=== PATIENT | female | born 1990 | race Caucasian/White ===

== ENCOUNTER 2016-12-06 08:54 | Inpatient (IN) | payer OTHER ==
[2016-12-06 12:22] LABS: Benzodiazepine Urine Screen None Detected (None Detect)
[2016-12-06 13:46] LABS: Hematocrit 39 % (35-47); Hemoglobin 12.9 g/dl (12.0-16.0); Mean Corpuscular HGB Conc 34 g/dl (31-36); Mean Corpuscular Hemoglobin 32 pg (27-31); Mean Corpuscular Volume 96 fL (80-97); Mean Platelet Volume 9 um3 (7.4-10.4); Red Blood Count 4.03 10^6/ul (4.0-5.4); Red Cell Distribution Width 14 % (10.5-15); White Blood Count 15.7 10^3/ul (3.5-10.8)
[2016-12-06] MEDS ORDERED: fentaNYL* 50 MCG/ML 2 ML VIAL (100 MCG VIAL) ONE (14:00)
[2016-12-06] MEDS ORDERED: Phenylephrine IV* 40 MCG/ML 10 ML SYRINGE IV PUSH PRN (14:42)
[2016-12-06] MEDS ORDERED: Sodium Citrate/Citric Acid* 15 ML UDC PO PRN (14:42)
[2016-12-06] MEDS ORDERED: Famotidine TAB* 20 MG PO PRN (14:42)
[2016-12-06] MEDS ORDERED: Dibucaine 1% 28.35 GM TUBE PR PRN (16:08)
[2016-12-06] MEDS ORDERED: Glycerin ADULT SUPP PR PRN (16:08)
[2016-12-06] MEDS ORDERED: Measles, Mumps,Rubella VACC* 0.5 ML/VIAL SUBCUT ONE (16:08)
[2016-12-06] MEDS ORDERED: Acetaminophen TAB* 325 MG PO PRN (16:08)
[2016-12-06] MEDS ORDERED: Witch Hazel PAD* JAR TOPICAL PRN (16:08)
[2016-12-06] MEDS ORDERED: Simethicone CHEW TAB* 80 MG PO SCH (17:30)
[2016-12-06] MEDS: Ibuprofen TAB* 600 MG PO PRN (19:28)
[2016-12-06] MEDS: Docusate CAP* 100 MG PO SCH (19:28)
[2016-12-07] MEDS: Ibuprofen TAB* 600 MG PO PRN ×4 (01:28→20:57)
[2016-12-07 07:43] LABS: Hematocrit 34 % (35-47); Hemoglobin 11.5 g/dl (12.0-16.0); Mean Corpuscular HGB Conc 34 g/dl (31-36); Mean Corpuscular Hemoglobin 33 pg (27-31); Mean Corpuscular Volume 98 fL (80-97); Mean Platelet Volume 9 um3 (7.4-10.4); Red Cell Distribution Width 14 % (10.5-15); White Blood Count 14.1 10^3/ul (3.5-10.8)
[2016-12-07] MEDS: Docusate CAP* 100 MG PO SCH ×3 (08:26→20:57)
[2016-12-07] MEDS ORDERED: Ferrous Gluconate TAB* 324 MG TAB PO SCH (09:00)
[2016-12-08 07:46] VITALS: BP 110/62
[2016-12-08] MEDS: Docusate CAP* 100 MG PO SCH ×2 (08:17→14:25)
[2016-12-08] MEDS: Ibuprofen TAB* 600 MG PO PRN ×2 (08:17→14:25)
== END 2016-12-08 17:35 | disposition home or self-care (01) | DRG 560 ==
LOC: MCHOBOUT 08:54 → MCHOB 09:14
PROVIDERS: ADMIT Midwife; ATTEND Midwife
PROC: 10E0XZZ Delivery of Products of Conception, External Approach (ICD-10-PCS; principal; 2016-12-06)
PROC: 10907ZC Drainage of Amniotic Fluid, Therapeutic from Products of Conception, Via Natural or Artificial Opening (ICD-10-PCS; 2016-12-06)
DX: O99.334 Smoking (tobacco) complicating childbirth (principal); F19.21 Other psychoactive substance dependence, in remission; F17.210 Nicotine dependence, cigarettes, uncomplicated; Z3A.39 39 weeks gestation of pregnancy; Z37.0 Single live birth
CPT/HCPCS: 36415; 80307; 85025; 86850; 86900; 86901; A9270-GY; J3010

== ENCOUNTER 2019-09-03 11:52 | Emergency (ER) | payer OTHER ==
[2019-09-03 13:03] VITALS: BP 116/82
--- NOTE | 2019-09-03 13:14 | UC ---
FLU HPI - HPI Summary HPI Summary: 29-year-old female presents with 6 day history of general malaise, fatigue, nasal congestion, sinus pressure, bilateral ear fullness, sore throat, mild shortness of breath, and mild cough. Reports fever of 102 F at the onset of symptoms but no fever since that time. States 2-year-old son became ill at the same time with similar symptoms and was evaluated at his commissioner of relocation services's office today and diagnosed with a viral upper respiratory infection. No recent travel and no known contact with persons isolated for or diagnosed with COVID-19. Denies ear drainage, dysphagia, chest pain, wheezing, abdominal pain, nausea, vomiting, or diarrhea. - History of Current Complaint Chief Complaint: UCRespiratory Stated Complaint: FEVER,HEADACHE,RESP COMPLAINT Time Seen by Provider: 09/03/19 12:38 Hx Obtained From: Patient Hx Last Menstrual Period: depo Pain Intensity: 7 - Allergy/Home Medications Allergies/Adverse Reactions: Allergies Allergy/AdvReac Type Severity Reaction Status Date / Time No Known Allergies Allergy Verified 09/03/19 12:37 Home Medications: Home Medications NK [No Home Medications Reported] 09/03/19 [History Confirmed 09/03/19] PMH/Surg Hx/FS Hx/Imm Hx Previously Healthy: Yes - Denies significant PMH - Surgical History Surgical History: None - Family History Family History: Denies significant FMH - Social History Occupation: Unemployed Lives: Alone Alcohol Use: None Substance Use Type: None Substance Use Comment - Amount & Last Used: hx of Smoking Status (MU): Former Smoker Household Exposure Type: Cigarettes - Immunization History Most Recent Influenza Vaccination: 09/23/16 Most Recent Pneumonia Vaccination: none Review of Systems All Other Systems Reviewed And Are Negative: Yes Constitutional: Positive: Fever, Chills, Fatigue Skin: Negative: Rash Eyes: Negative: Drainage, Eye Redness ENT: Positive: Sore Throat, Ear Ache, Nasal Discharge, Sinus Congestion, Sinus Pain/Tenderness Respiratory: Positive: Shortness Of Breath, Cough Cardiovascular: Negative: Palpitations, Chest Pain Gastrointestinal: Negative: Abdominal Pain, Vomiting, Diarrhea, Nausea Genitourinary: Positive: Negative Musculoskeletal: Positive: Negative Neurological/Mental Status: Positive: Negative Is Patient Immunocompromised?: No Physical Exam - Summary Physical Exam Summary: GENERAL APPEARANCE: Well developed, well nourished, alert and cooperative, and appears to be in no acute distress. EYES: Conjunctiva clear. No drainage. EARS: External auditory canals and tympanic membranes clear, hearing grossly intact. NOSE: Mild nasal congestion. No nasal discharge. THROAT: Pharyngeal cobblestoning. No tonsilar inflammation, swelling, exudate, or lesions. Uvula midline. NECK: Neck supple, non-tender without lymphadenopathy. CARDIAC: Normal S1 and S2. No S3, S4 or murmurs. Rhythm is regular. There is no peripheral edema, cyanosis or pallor. Extremities are warm and well perfused. Capillary refill is less than 2 seconds. Peripheral pulses intact. LUNGS: Clear to auscultation without rales, rhonchi, wheezing or diminished breath sounds. Cough not observed. ABDOMEN: Positive bowel sounds. Soft, nondistended, nontender. No guarding or rebound. No masses or hepatosplenomegally. MUSKULOSKELETAL: ROM intact to all extremities. No joint erythema or tenderness. Normal muscular development. Normal gait. SKIN: Skin normal color, texture and turgor with no lesions or eruptions. Triage Information Reviewed: Yes Vital Signs: Initial Vital Signs Temp 98.7 F 09/03/19 12:37 Pulse 98 09/03/19 12:37 Resp 18 09/03/19 12:37 BP 116/82 09/03/19 12:37 Pulse Ox 97 09/03/19 12:37 Vital Signs Reviewed: Yes Flu Course/Dx - Course Course Of Treatment: 29-year-old female presents with 6 day history of general malaise, fatigue, nasal congestion, sinus pressure, bilateral ear fullness, sore throat, mild shortness of breath, and mild cough. Reports fever of 102 F at the onset of symptoms but no fever since that time. States 2-year-old son became ill at the same time with similar symptoms and was evaluated at his commissioner of relocation services's office today and diagnosed with a viral upper respiratory infection. No recent travel and no known contact with persons isolated for or diagnosed with COVID-19. Denies ear drainage, dysphagia, chest pain, wheezing, abdominal pain, nausea, vomiting, or diarrhea. Afebrile. Vital signs stable. Patient had mild nasal congestion, normal TMs, pharyngeal cobblestoning without tonsillar swelling or exudate, no cervical lymphadenopathy, clear bilateral breath sounds, and otherwise unremarkable exam. Rapid strep test and rapid flu tests were negative. Discussed with the patient that based on her history have a very low suspicion for COVID-19 infection and am recommending symptomatic treatment for a viral upper respiratory infection at this time. She is to return here or follow up with primary care in 3-5 days if symptoms persist. Anticipatory guidance and warning symptoms are reviewed with the patient. Verbalizes understanding and agrees with plan of care. - Differential Dx/Diagnosis Differential Diagnosis/HQI/PQRI: Bronchitis, Influenza, Pneumonia, Upper Respiratory Infection, Other - Sinusitis, COVID-19 Provider Diagnosis: URI, acute Discharge ED - Sign-Out/Discharge Documenting (check all that apply): Patient Departure All imaging exams completed and their final reports reviewed: No Studies - Discharge Plan Condition: Stable Disposition: HOME Patient Education Materials: Upper Respiratory Infection (ED) Forms: COVID-19 Eval & Not Tested Referrals: No Primary Care Phys,NOPCP [Primary Care Provider] - Additional Instructions: Your history and exam are consistent with a viral upper respiratory infection. Viral infections do not respond to antibiotics and are limited to the treatment of symptoms. Viral infections typically run their course in 7-10 days. Drink plenty of fluids to avoid dehydration especially if you are running any fever. Use a saline rinse kit such as Neti Pot or NeilMed at least twice a day to help thin secretions and promote drainage of the sinuses. Use fluticasone (Flonase) nasal spray 2 sprays each nostril once daily. You can also use on over the counter decongestant such as Sudafed to help with congestion. Take over the counter acetaminophen (Tylenol) or ibuprofen (Advil, Motrin) according to directions as needed for pain or fever. Use salt water gargles several times a day if you have a sore throat. You may also use Chloraseptic spray or Cepacol lonzenges according to directions which contain a numbing medication and can provide some temporary relief from your sore throat. Return here or follow up with primary care in 3-5 days if symptoms persist. I have provided you with the contact information for the [facility] physician referral service if you need assistance with establishing with a provider. It is extremely important at this time to be heeding the calls for social distancing. Social distancing is deliberately increasing the physical space between people to avoid spreading illness. Staying at least six feet away from other people lessens your chances of catching COVID-19. Examples of social distancing that allow you to avoid larger crowds or crowded spaces are: * Working from home instead of at the office * Switching to online classes * Visiting loved ones by electronic devices instead of in person * Cancelling or postponing conferences and large meetings Seek immediate medical attention in the emergency room if you have fever greater than 100.5 F despite taking acetaminophen or ibuprofen, have chest pain , difficulty breathing, are unable to swallow, or have any worsening of symptoms. - Billing Disposition and Condition Condition: STABLE Disposition: Home
[2019-09-03 13:16] LABS: Influenza A Molecular Negative (Negative); Influenza B Molecular Negative (Negative)
== END 2019-09-03 14:00 | disposition home or self-care (01) ==
LOC: UCEAST 11:52
DX: J06.9 Acute upper respiratory infection, unspecified (principal); R06.02 Shortness of breath; Z87.891 Personal history of nicotine dependence
CPT/HCPCS: 87651; 99211; G0463

== ENCOUNTER 2024-04-05 09:46 | Observation (INO) ==
[2024-04-05] MEDS: Lactated Ringers 1000 ml BAG 1,000 ML IV ONE (11:14)
[2024-04-05 11:48] LABS: Urine Appearance Clear; Urine Bilirubin Negative (Negative); Urine Blood Negative (Negative); Urine Color Yellow; Urine Glucose Negative (Negative); Urine Ketones Negative (Negative); Urine Nitrite Negative (Negative); Urine Protein Trace (Negative); Urine Specific Gravity 1.039 (1.002-1.030); Urine Urobilinogen Negative (Negative); Urine pH 5.5 (5.0-8.0)
[2024-04-05 11:50] LABS: ABS Monocytes 0.2 10^3/uL (0.0-0.9); ABS Neutrophils 3.8 10^3/uL (1.5-7.6); Hematocrit 38.8 % (35-45); Lymphocyte % 19.1 %; Mean Corpuscular Hemoglobin 30.5 pg (27-33); Mean Corpuscular Hgb Conc 33.4 g/dL (31-36); Mean Corpuscular Volume 91.3 fL (80-97); Mean Platelet Volume 7.8 fL (7.5-11.2); Platelet Count 306 10^3/uL (150-450); Red Blood Count 4.25 10^6/uL (3.63-4.92); Red Cell Distribution Width 14.5 % (12-17)
[2024-04-05 12:30] LABS: Albumin 3.8 g/dL (3.2-5.2); Albumin/Globulin Ratio 1.2 (1-3); C Reactive Protein 63.51 mg/L (<8.01); Calcium 8.8 mg/dL (8.6-10.3); Creatinine, Serum 0.66 mg/dL (0.51-0.95); Globulin 3.3 g/dL (2-4); Potassium 4.1 mmol/L (3.5-5.0); Total Bilirubin 0.4 mg/dL (0.2-1.0); Total Protein 7.1 g/dL (6.4-8.9); eGFR CKD-EPI 117.2 (>60)
[2024-04-05 12:32] LABS: HCG Pregnancy 1.06 mIU/mL
[2024-04-05] MEDS: Iohexol 350 (CONTRAST) 500 ML MDV IV ONE (12:56)
[2024-04-05] MEDS: Piperacillin/Tazobac 3.375 BAG 3.375 GM/100 ML BAG IV ONE (16:52)
[2024-04-05] MEDS: Acetaminophen IV 1 GM/100ML 1,000 MG/100 ML BAG IV ONE (17:36)
[2024-04-05 18:01] LABS: Hepatitis B Surface Antigen Nonreactive (Nonreactive)
[2024-04-05 18:05] LABS: Hepatitis A Ab IgM Negative (Negative)
[2024-04-05 18:06] LABS: Hepatitis B Core IgM Nonreactive (Nonreactive)
[2024-04-05 18:18] LABS: Hepatitis C Antibody Negative (Negative)
[2024-04-05] MEDS ORDERED: metroNIDAZOLE IV 500 MG/100ML 500 MG/100 ML BAG IVPB SCH (21:00)
[2024-04-05] MEDS: cefTRIAXone 1 gm/50 mL D5W 1 GM/50 ML BAG IV SCH (21:17)
[2024-04-05] MEDS: DOXYcycline 100 MG in NS 0.9% 250 ml 250 ML IVPB SCH (21:57)
[2024-04-05] MEDS: Lactated Ringers 1000 ml BAG 1,000 ML IV SCH (21:57)
[2024-04-06] MEDS: Ondansetron 4 mg VIAL 2 MG/ML 2 ml VIAL IV PRN (00:32)
[2024-04-06] MEDS: metroNIDAZOLE IV 500 MG/100ML 500 MG/100 ML BAG IVPB SCH (05:16)
[2024-04-06 06:22] LABS: Hematocrit 36.6 % (35-45); Hemoglobin 12.2 g/dL (11.5-14.3); Mean Corpuscular Hemoglobin 30.5 pg (27-33); Mean Corpuscular Hgb Conc 33.3 g/dL (31-36); Mean Corpuscular Volume 91.4 fL (80-97); Mean Platelet Volume 7.8 fL (7.5-11.2); Platelet Count 277 10^3/uL (150-450); Red Cell Distribution Width 14.4 % (12-17); White Blood Count 3.9 10^3/uL (3.8-11.8)
[2024-04-06 06:40] LABS: Albumin 3.5 g/dL (3.2-5.2); Albumin/Globulin Ratio 1.2 (1-3); Calcium 8.9 mg/dL (8.6-10.3); Creatinine, Serum 0.69 mg/dL (0.51-0.95); Globulin 2.9 g/dL (2-4); Potassium 4.4 mmol/L (3.5-5.0); Total Bilirubin 0.3 mg/dL (0.2-1.0); Total Protein 6.4 g/dL (6.4-8.9)
[2024-04-06 06:54] LABS: TSH Ultra Thyroid Stim Horm 7.5 mcIU/mL (0.34-5.60)
[2024-04-06] MEDS ORDERED: metroNIDAZOLE IV 500 MG/100ML 500 MG/100 ML BAG IVPB SCH (07:00)
[2024-04-06] MEDS ORDERED: Morphine 2 MG/ML SYRINGE IV PRN (09:16)
[2024-04-06 09:32] LABS: ABS Lymphocytes 1.9 10^3/uL (1.0-4.8); ABS Monocytes 0.4 10^3/uL (0.0-0.9); ABS Neutrophils 1.7 10^3/uL (1.5-7.6); Eosinophil % 0.3 %; Lymphocyte % 47.1 %; Nucleated Red Blood Cells % 0.1 %/100WBC (0.0-0.8); RBC Morphology Normal (Normal)
[2024-04-07 06:02] LABS: ABS Lymphocytes 2.6 10^3/uL (1.0-4.8); ABS Monocytes 0.6 10^3/uL (0.0-0.9); ABS Neutrophils 1.3 10^3/uL (1.5-7.6); Eosinophil % 0.8 %; Hematocrit 34.7 % (35-45); Hemoglobin 11.7 g/dL (11.5-14.3); Lymphocyte % 56.5 %; Mean Corpuscular Hemoglobin 30.7 pg (27-33); Mean Corpuscular Hgb Conc 33.6 g/dL (31-36); Mean Corpuscular Volume 91.3 fL (80-97); Mean Platelet Volume 7.5 fL (7.5-11.2); Nucleated Red Blood Cells % 0.1 %/100WBC (0.0-0.8); Platelet Count 293 10^3/uL (150-450); Red Blood Count 3.81 10^6/uL (3.63-4.92); Red Cell Distribution Width 14.7 % (12-17); White Blood Count 4.5 10^3/uL (3.8-11.8)
[2024-04-07 06:20] LABS: Albumin 3.5 g/dL (3.2-5.2); Albumin/Globulin Ratio 1.3 (1-3); Calcium 8.8 mg/dL (8.6-10.3); Creatinine, Serum 0.74 mg/dL (0.51-0.95); Globulin 2.8 g/dL (2-4); Magnesium 1.6 mg/dL (1.9-2.7); Potassium 4.3 mmol/L (3.5-5.0); Total Bilirubin 0.3 mg/dL (0.2-1.0); Total Protein 6.3 g/dL (6.4-8.9); eGFR CKD-EPI 108.1 (>60)
[2024-04-07] MEDS: Magnesium Sulfate 2 gm BAG 2 GM/50 ML BAG IVPB ONE (08:08)
[2024-04-07 08:17] LABS: C Reactive Protein 23.11 mg/L (<8.01)
[2024-04-07 09:15] VITALS: BP 116/79
[2024-04-07 13:08] LABS: Chlamydia trachomatis NAA Negative (Negative); Neisseria gonorrhoeae (GC) NAA Negative (Negative)
[2024-04-08 18:55] LABS: Anaplasma phagocytophilum Positive (Negative); B. miyamotoi PCR, B Negative (Negative); Babesia divergens/MO-1 Negative (Negative); Babesia ducani Negative (Negative); Ehrlichia chaffeensis Negative (Negative); Ehrlichia ewingii/canis Negative (Negative); Ehrlichia muris eauclairensis Negative (Negative)
== END 2024-04-07 14:45 | disposition home or self-care (01) ==
LOC: ED 09:46 → EDHOLD 09:46 → MEDTELE 22:20
PROVIDERS: ADMIT Student in an Organized Health Care Education/Training Program; ATTEND Internal Medicine